=== PATIENT | male | born 1950 | race Caucasian/White ===

== ENCOUNTER 2017-06-02 08:36 | Day surgery (SDC) | payer BC ==
[2017-05-27 12:57] VITALS: BMI 19.8
[2017-06-02] MEDS ORDERED: MIDAZOLAM HCL 2 MG/2 ML SINGLE DOSE VIAL ONE ×2 (09:12→09:20)
[2017-06-02] MEDS ORDERED: PROPOFOL 20 ML ONE ×2 (09:15→09:20)
[2017-06-02] MEDS ORDERED: BUPIVACAINE HCL/PF 0.25% (2.5MG/ML) 10 ML VIAL IJ ONE (10:06)
[2017-06-02] MEDS ORDERED: ONDANSETRON 4 MG/2 ML VIAL ONE (10:41)
[2017-06-02] MEDS ORDERED: DESFLURANE GAS 240 ML BOTTLE IH ONE (12:44)
[2017-06-02 13:31] VITALS: TEMP 97.5
[2017-06-02 13:37] VITALS: BP 122/70; PULSE 71
[2017-06-02] MEDS ORDERED: LACTATED RINGERS SOLUTION 1,000 ML IV SCH (13:45)
[2017-06-02] MEDS ORDERED: ONDANSETRON 4 MG/2 ML VIAL IVPUSH PRN (13:45)
[2017-06-02] MEDS ORDERED: oxyCODONE HCL 5 MG TABLET PO PRN ×2 (13:45)
--- NOTE | 2017-06-04 10:53 | OP ---
DATE OF OPERATION: 06/02/2017 PREOPERATIVE DIAGNOSIS: Left small finger Dupuytrens contracture. POSTOPERATIVE DIAGNOSIS: Left small finger Dupuytrens contracture. OPERATIVE PROCEDURE: Left small finger and palm partial palmar fasciectomy with release of Dupuytrens contracture. SURGEON: Gabriele Herring MD SNOWMAKER: BARB Hatch ANESTHESIA: General. COMPLICATIONS: None. ESTIMATED BLOOD LOSS: Minimal. INDICATIONS FOR PROCEDURE: The patient is a 67-year-old male with the above findings. He was indicated for operative treatment. The risks, benefits, and alternatives were discussed with the patient at length, and proper informed consent was obtained. DESCRIPTION OF PROCEDURE: After proper identification of the patient and the correct operative site, the patient was brought to the operating room and placed supine on the operating room table. All bony prominences were well padded. General anesthesia was provided by the anesthesiologist and adequate for the procedure. Left upper extremity was prepped and draped in the usual sterile fashion. A well-padded tourniquet was placed with a sterile prep. Esmarch bandage used to exsanguinate the left upper extremity, and tourniquet inflated to 250 mmHg. A beny-Ana incision was made over the left small finger volar surface. Incision was taken sharply through the skin with blunt and sharp dissection through subcutaneous tissues. This was done from the distal aspect of the palm to the PIP joint area. The cord was found to be a spiral cord intertwined with the digital nerve. This was carefully dissected from proximal to distal direction, carefully protecting the digital nerves throughout the procedure. Once the cord was completely removed, the finger was able to be fully straightened. The wound was repaired using 5-0 nylon sutures. Sterile dressings and a splint were applied. Tourniquet was released. Finger was well perfused. Kayode Tompkins, the commercial assistant, was integral throughout this procedure. Procedure could not have been performed without a skilled operative commercial assistant. Splint was then placed. Patient was then reversed from anesthesia and brought to the recovery room in stable condition. He tolerated the procedure well. Taylor [id number]
--- NOTE | 2017-06-08 10:34 | PATH ---
Surgical Pathology Report Patient Name: EVERT DE LA CRUZ [facility]. Rec. #: [id number] /Age/Gender: 1950 (Age: 67) / M Account: [id number] Location: [facility] Taken: 06/02/2017 Received: 06/02/2017 Reported: 06/08/2017 Physicians: Gabriele Herring M.D. Specimen(s) Received LEFT SMALL FINGER DUPUYTREN'S Clinical History Left small finger Dupuytren's contracture Final Diagnosis LEFT SMALL FINGER, DUPUYTREN'S TISSUE, RELEASE: PALMAR FIBROMATOSIS (DUPUYTREN'S CONTRACTURE). Electronically Signed Maegan Pwoell M.D. Gross Description Received in formalin labeled "left small finger Dupuytren's tissue," is a 1.2 x 1.0 x 0.3 cm cordon-yellow, irregular portion of fibrous tissue. The specimen is bisected and entirely submitted in one cassette. 06/03/2017 [facility]06/03/2017
== END 2017-06-02 12:00 | disposition home or self-care (01) ==
LOC: FASU 08:36
PROVIDERS: ATTEND Orthopaedic Surgery Hand Surgery
PROC: 0JNK0ZZ Release Left Hand Subcutaneous Tissue and Fascia, Open Approach (ICD-10-PCS; principal; 2017-06-02 09:20)
DX: M72.0 Palmar fascial fibromatosis [Dupuytren] (principal)
CPT/HCPCS: 88304-TC; 94760